=== PATIENT | male | born 1940 | race Caucasian/White ===

== ENCOUNTER 2019-11-08 09:52 | Outpatient (CLI) | payer MEDICARE, SELFPAY ==
[2019-11-08 11:19] LABS: Alanine Aminotransferase 22 U/L (4-50); Albumin Level 4.2 g/dL (3.5-5.1); Alkaline Phosphatase 100 U/L (38-126); Aspartate Amino Transferase 21 U/L (17-59); Bilirubin,Total 0.8 mg/dL (0.2-1.3); Blood Urea Nitrogen 15 mg/dL (9-20); Calcium 8.9 mg/dL (8.4-10.2); Carbon Dioxide 30 mmol/L (22-30); Chloride 99 mmol/L (98-107); Cholesterol 118 mg/dL (0-200); Estimated Glomerular Filt Rate > 60; Glucose 101 mg/dL (75-110); HDL Direct 38 mg/dL; Sodium 136 mmol/L (137-145); Triglycerides 141 mg/dL (<150); Uric Acid 3.8 mg/dL (3.5-8.5)
[2019-11-08 11:26] LABS: Hemoglobin A1C 6.1 % (<5.7)
[2019-11-08 11:30] LABS: LDL Cholesterol Direct 55 mg/dL
== END 2019-11-08 09:53 | disposition home or self-care (01) ==
PROVIDERS: PCP Internal Medicine; Visit Provider Internal Medicine
DX: M10.9 Gout, unspecified (principal); I10 Essential (primary) hypertension; E78.5 Hyperlipidemia, unspecified; E11.9 Type 2 diabetes mellitus without complications; E03.9 Hypothyroidism, unspecified; Z79.899 Other long term (current) drug therapy
CPT/HCPCS: 36415; 80053; 80061; 83036; 84443; 84550

== ENCOUNTER 2020-05-14 10:14 | Outpatient (CLI) | payer MEDICARE, SELFPAY ==
[2020-05-14 10:47] LABS: Alanine Aminotransferase 33 U/L (4-50); Albumin Level 4.2 g/dL (3.5-5.1); Alkaline Phosphatase 111 U/L (38-126); Anion Gap 5 mmol/L (8-16); Aspartate Amino Transferase 30 U/L (17-59); Bilirubin,Total 0.9 mg/dL (0.2-1.3); Blood Urea Nitrogen 21 mg/dL (9-20); Calcium 9.3 mg/dL (8.4-10.2); Carbon Dioxide 35 mmol/L (22-30); Chloride 96 mmol/L (98-107); Cholesterol 124 mg/dL (0-200); Estimated Glomerular Filt Rate > 60; Glucose 124 mg/dL (75-110); HDL Direct 41 mg/dL; Potassium 4.6 mmol/L (3.4-5.0); Sodium 136 mmol/L (137-145); Triglycerides 115 mg/dL (<150)
[2020-05-14 10:59] LABS: LDL Cholesterol Direct 61 mg/dL
== END 2020-05-14 10:15 | disposition home or self-care (01) ==
PROVIDERS: PCP Internal Medicine; Visit Provider Nurse Practitioner
DX: E78.5 Hyperlipidemia, unspecified (principal); E11.9 Type 2 diabetes mellitus without complications
CPT/HCPCS: 36415; 80053; 80061; 83036

== ENCOUNTER 2020-11-05 19:24 | Inpatient (IN) | payer MEDICARE, SELFPAY ==
[2020-11-05] VITALS (11 sets, daily range): BP systolic 113–172; BP diastolic 68–104; PULSE 89–109; RESP 15–30; TEMP 37.1–39.4; O2SAT 88–96
--- NOTE | ~2020-11-05 | CT_ITS ---
EXAMINATION: CTA chest PE protocol EXAM DATE: 11/05/2020 21:39 INDICATION: Shortness of breath, elevated d dimer. TECHNIQUE: Spiral CTA of the chest (pulmonary arteries) was performed with 100 cc Omnipaque 350 intr avenous contrast injection. Images were acquired during the pulmonary arterial phase. Coronal maxi mum intensity projection 3D-reconstructions were created by the technologist on dedicated workstation . Axial, coronal and sagittal reformatted images were reviewed. The dose-length product (DLP) for t his examination was 626.25 mGy-cm. The exposure was tailored according to patient size (auto mA exp osure control), and iterative reconstruction (ASIR) was used as additional dose reduction technique. There is no prior study for comparison. FINDINGS: There are no pulmonary emboli in the 1st through 3rd order (central and interlobar) pulmon alcon arteries. Some loss of attenuation in the basilar segmental pulmonary from respiratory motion, t hese regions not confidently evaluated. No Intraluminal filling defects identified. No thoracic aor tic dissection. There are some scattered ill-defined bilateral perihilar groundglass opacities consi stent with pneumonia. These are not well appreciated on the chest x-ray. There are no pleural or per icardial effusions. Tracheobronchial tree is patent. There is no mediastinal, hilar or axillary l ymphadenopathy. There is no pneumothorax. Heart normal in size. There is moderate coronary merlene rial calcification, arterial sclerosis. There is abdominal aortic endograft. There is thoracic spon dylosis without osteoblastic or osteolytic lesions identified. IMPRESSION: 1. No central or upper lobe pulmonary emboli. Basilar segmental vessels not confidently evaluated. 2. Some scattered ill-defined perihilar groundglass opacities, likely acute infectious process. Reviewed, dictated and finalized at location G. IMPRESSION: 1. No central or upper lobe pulmonary emboli. Basilar segmental vessels not co nfidently evaluated. 2. Some scattered ill-defined perihilar groundglass opacities, likely acute in fectious process.
--- NOTE | ~2020-11-05 | XR_ITS ---
EXAMINATION: XR chest 2V EXAM DATE: 11/05/2020 19:48 INDICATION: SOB and weakness, nonproductive cough x 2 days, Hx of COPD. TECHNIQUE: Frontal and lateral projections of the chest obtained and reviewed. Comparison is made to prior examination from 01/18/2018. FINDINGS: The lungs are clear. There are no pleural effusions. The cardiomediastinal silhouette is within normal limits. There is no pneumothorax suspected. The bones and soft tissues are unremarkab le. IMPRESSION: No acute cardiopulmonary findings. Reviewed, dictated and finalized at location A.
--- NOTE | 2020-11-05 19:32 | ECG_ITS ---
Measurements Intervals [place] Rate: 108 P: 70 FL: 175 QRS: 38 QRSD: 90 T: 92 QT: 289 QTc: 388 Interpretive Statements SINUS TACHYCARDIA NONSPECIFIC ST & T-WAVE ABNORMALITY- DIFFUSE LEADS BASELINE ARTIFACT- I, II, III ABNORMAL ECG Electronically Signed On 11-06-2020 6:12:51 CDT by Vicente Ledezma D.O.
[2020-11-05 20:06] LABS: Basophils Percent Auto 0.3 % (0.2-1.2); Eosinophils Absolute Auto 0.1 K/mm3 (0-0.3); Eosinophils Percent Auto 1.2 % (0-4.4); Hematocrit 46.3 % (42.0-52.0); Hemoglobin 15.4 g/dL (14.0-18.0); Immature Granulocyte Absolute 0.07 K/mm3 (0.00-0.031); Immature Granulocyte Percent A 0.6 % (0-0.5); Lymphocytes Absolute Auto 0.84 K/mm3 (0.9-3.2); Lymphocytes Percent Auto 7.4 % (18.3-44.2); Mean Corpuscular HGB Conc 33.3 g/dl (32-36); Mean Corpuscular Hemoglobin 30.9 pg (26-34); Mean Platelet Volume 9.8 fl (7.4-10.4); Monocytes Absolute Auto 0.9 K/mm3 (0.1-0.6); Neutrophils Absolute Auto 9.3 K/mm3 (1.3-6.7); Neutrophils Percent Auto 82.5 % (45.5-73.1); Platelet Count Result 126 k/mm3 (150-375); Red Blood Count 4.98 M/mm3 (4.6-6.20); Red Cell Distribution Width 13.2 % (11.5-14.5); White Blood Count 11.3 K/mm3 (4.5-10.0)
[2020-11-05 20:18] LABS: Anion Gap 8 mmol/L (8-16); Blood Urea Nitrogen 13 mg/dL (9-20); Calcium 8.7 mg/dL (8.4-10.2); Carbon Dioxide 25 mmol/L (22-30); Chloride 100 mmol/L (98-107); Estimated Glomerular Filt Rate > 60; Glucose 140 mg/dL (75-110); Potassium 3.8 mmol/L (3.4-5.0); Sodium 133 mmol/L (137-145)
--- NOTE | 2020-11-05 20:20 | ED.SOB ---
HPI - SOB/Dyspnea General Chief Complaint: Shortness of Breath/Dyspnea Stated Complaint: sob Time Seen by Provider: 11/05/20 19:47 Source: patient, EMS and RN notes reviewed Mode of arrival: EMS Limitations: no limitations History of Present Illness HPI Narrative: This is a 80 year old male with history of CHF, COPD,HTN, CAD who presents for evaluation shortness of breath. Patient states he has had shortness of breath for 1 day. EMS found patient to be hypoxic at 88% on room and he was placed on 3 L NC. He also reports productive cough and wheezing. He has been using his nebulizer at home but he is unsure if he has had improvement . He denies chest pain, nasuea, vomiting or diarrhea. He was found to have a fever in ER of 103F. He denies sick contacts. He received his COVID vaccine in August. Related Data Allergies Allergy/AdvReac Type Severity Reaction Status Date / Time No Known Allergies Allergy Mild Verified 11/03/20 13:54 Review of Systems Review of Systems: All systems reviewed & are unremarkable except as noted in HPI and below Constitutional: Constitutional: Reports chills, Reports fever(s) and Reports weakness ENT: Denies sore throat Cardiovascular: Cardiovascular: Denies chest pain Respiratory: Respiratory: Reports cough and Reports dyspnea Gastrointestinal: Gastrointestinal: Denies abdominal pain, Denies diarrhea, Denies nausea and Denies vomiting PMFSH Past Medical History Medical History (Updated 11/06/20 @ 07:10 by Yael Potter MD) Abdominal aortic aneurysm, without rupture Chronic obstructive pulmonary disease, unspecified COVID-19 vaccine series completed (~08/2020) Diabetes mellitus with peripheral vascular disease Essential (primary) hypertension Gout History of BPH Hyperlipidemia Hypothyroidism Obstructive sleep apnea Raynauds syndrome Surgical History Surgical History (Updated 11/06/20 @ 01:29 by Makeda Bush DO) History of aortic aneurysm repair History of knee replacement (2006) History of left knee replacement History of total right knee replacement (~2005) Status post open reduction with internal fixation of fracture (~1996) right tibial shaft Family History Family History (Updated 11/06/20 @ 01:37 by Makeda Bush DO) Sibling Heart disease his brother has heart disease but is otherwise healthy Patient's sister is in good health Throat cancer brother Father , at age 64 Cerebrovascular accident, Onset Age: 62 Mother , at age 94 Diabetes mellitus, Onset Age: 95 Social History Social History (Updated 11/06/20 @ 01:36 by Makeda Bush DO) Social History: He lives with his of 22 years. 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 Smoking packs per day: 2 Smoking cigarettes per day: 40.0 Years smoked: 41 Smoking pack-years: 82.00 Smoking status: Former smoker Tobacco type: cigarettes Second hand tobacco smoke exposure: Yes Smoking end date: 09/21/94 Alcohol intake: former Drinks per week: 14 Substance use: current Substance use type: marijuana Other substance usage details: [email or web address] Gender identity (if verbalized by the patient): Male Sexual Orientation (if Verbalized by the Patient): Straight or Heterosexual Spiritual care concerns: No Exam Const: General: alert and ill appearing Orientation/consciousness: patient oriented x3 Resp: Effort & Inspection: tachypneic Auscultation: rales and no wheezes Cardio: Rate: tachycardic Rhythm: regular rhythm Heart sounds: no murmurs GI: GI Palp: Yes Soft to palpation, No Tenderness to palpation present (GI) and No Guarding due to palpation present (GI) Auscultation: normal bowel sounds Skin: General skin exam: normal color Rashes: no rashes Neuro: General: patient oriented x3, moves all extremities and CN's II-XI intact bilaterally Psyc
[2020-11-05] MEDS: ALBUTEROL SULFATE NEB 2.5 MG/0.5 ML INH 10 MG INHALATION (20:23)
[2020-11-05] MEDS: methylPREDNISolone SOD SUCC 125 MG VIAL IV PUSH (20:23)
[2020-11-05] MEDS: IPRATROPIUM BR 0.02% INH SOLN 0.5 MG/2.5 ML VIAL 1 MG INHALATION (20:23)
[2020-11-05 20:39] LABS: Alveolar/Arterial O2 Gradient 82.6 mmHg; Base Excess ABG 0.9 mEq/l (+/-2.0); Carboxyhemoglobin 0.7 % THb (0-2.0); Device NASAL CANNULA; Fractional Inspired Oxygen 32 %; HCO3 ABG 26.5 mEq/l (22.0-26.0); Methemoglobin ABG 0.6 %THb (0-1.5); Modified Allen's Test Pass; Oxygen Content ABG 21.6 %vol (16.0-22.0); Oxygen Saturation ABG 96.9 % (95.0-100.0); Oxyhemoglobin 95.4 % THb (90.0-100.0); PCO2 ABG 45.4 mmHg (35.0-45.0); PO2 ABG 92.4 mmHg (80.0-100.0); PO2 FiO2 Ratio Arterial Blood 2.89 %; Reduced Hemoglobin 3.3 %THb (0-5.0); Site Drawn RIGHT RADIAL; Total Hemoglobin 16.1 g/dL (12.0-18.0); pH ABG 7.384 (7.350-7.450)
[2020-11-05 20:47] LABS: Add Urine Microscopic? YES; Appearance Urine Clear (Clear); Bacteria Urine Trace /hpf; Bilirubin Urine Negative (Negative); Blood Urine Negative (Negative); Color Urine Yellow (Yellow); Glucose Urine UA Negative (Negative); Ketones Urine Negative (Negative); Leukocyte Esterase Ur Negative LEU/UL (Negative); Nitrate Urine Negative (Negative); Protein Urine 1+ mg/dL (Negative); RBC Urine 0-2 /hpf (0-2); Specific Grav Ur 1.018 (1.001-1.035); Squamous Epithelial Cell Urine Rare /hpf (Few); WBC Urine 0-3 /hpf
[2020-11-05 20:51] LABS: Prothrombin Time 13.1 Seconds (11.1-14.7)
[2020-11-05 20:51] LABS: Lactic Acid Reflex 1.4 mmol/L (0.7-2.1)
[2020-11-05 20:52] LABS: Partial Thromboplastin Time 29.4 SECONDS (22.3-36.8)
[2020-11-05 20:53] LABS: Alanine Aminotransferase 51 U/L (4-50); Albumin Level 4.3 g/dL (3.5-5.1); Alkaline Phosphatase 105 U/L (38-126); Aspartate Amino Transferase 41 U/L (17-59); CRP 2.7 mg/dL (<1.0)
[2020-11-05 20:54] LABS: D Dimer 1.44 ug/mL (<0.48)
[2020-11-05 21:02] LABS: Troponin I 0.014 ng/mL (0.000-0.034)
[2020-11-06] VITALS (15 sets, daily range): BP systolic 119–135; BP diastolic 65–89; PULSE 61–87; RESP 16–20; TEMP 36.1–36.8; O2SAT 90–100; BMI 35.9
--- NOTE | 2020-11-06 01:19 | PM.IMHP ---
H&P: HPI History of Present Illness Date/Time: 11/05/20 22:40 Chief Complaint: Weakness and shortness of breath Narrative: 80-year-old male with past medical history of COPD,, hypertension, diabetes and obstructive sleep apnea who presented to the ER from home via EMS with weakness and shortness of breath starting yesterday. The patient reports that he has had new onset of cough that is nonproductive. He feels like he has a wet rattle in his chest. He does not usually use oxygen at home but on EMS arrival to his residence he is satting 80% on room air. He is placed on 3 L nasal cannula with improvement in oxygen saturations up to 96%. The patient is usually ambulatory and independent in activities of daily living but had required assistance getting around the house today. He has been having chills and feeling feverish. He has noticed that he has been more wheezy. He has been using his DuoNebs every 6 hours with minimal relief in symptoms. He had not taken his temperature at home. he received the [employer] COVID vaccine at least a couple of months ago. he denies any chest pain. He has not had a nausea, vomiting, changes in sense of taste, changes in sense of smell, increased nasal congestion or rhinorrhea. He has been compliant with his home CPAP. He denies any lower extremity swelling or leg pain. His cough and shortness of breath is worse with lying down and with activity. He generally feels weak. He routinely gets up 4 times a night to urinate. He frequently feels as if he can't empty his bladder all the way. He has difficulty starting and stopping his urinary stream. He is not on any medications for BPH. He recently started taking marijuana edibles twice a day which has resolved his chronic dysuria. Marijuana edibles also help him with his arthritic pain. Review of Systems Review of Systems: Narrative: 12 systems were reviewed with pertinent positives and negatives per HPI. Except as documented in the HPI, all other systems were reviewed and are negative. [facility] Past Medical History Medical History (Updated 11/06/20 @ 02:31 by Makeda Bush DO) Abdominal aortic aneurysm, without rupture Chronic obstructive pulmonary disease, unspecified COVID-19 vaccine series completed (~08/2020) Diabetes mellitus with peripheral vascular disease Essential (primary) hypertension Gout History of BPH Hyperlipidemia Hypothyroidism Obstructive sleep apnea Raynauds syndrome Surgical History Surgical History (Updated 11/06/20 @ 01:29 by Makeda Bush DO) History of aortic aneurysm repair History of knee replacement (2006) History of left knee replacement History of total right knee replacement (~2005) Status post open reduction with internal fixation of fracture (~1996) right tibial shaft Family History Family History (Updated 11/06/20 @ 01:37 by Makeda Bush DO) Sibling Heart disease his brother has heart disease but is otherwise healthy Patient's sister is in good health Throat cancer brother Father , at age 64 Cerebrovascular accident, Onset Age: 62 Mother , at age 94 Diabetes mellitus, Onset Age: 95 Social History Social History (Updated 11/06/20 @ 01:36 by Makeda Bush DO) Social History: He lives with his of 22 years. 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 Smoking packs per day: 2 Smoking cigarettes per day: 40.0 Years smoked: 41 Smoking pack-years: 82.00 Smoking status: Former smoker Tobacco type: cigarettes Second hand tobacco smoke exposure: Yes Smoking end date: 09/21/94 Alcohol intake: former Drinks per week: 14 Substance use: current Substance use type: marijuana Other substance usage details: matthew Gender identity (if verbalized by the patient): Male Sexual Orientation (if Verbalized by the Patient): Straight or Heterosexua
[2020-11-06 06:12] LABS: Hematocrit 45.9 % (42.0-52.0); Hemoglobin 15.4 g/dL (14.0-18.0); Mean Corpuscular HGB Conc 33.6 g/dl (32-36); Mean Corpuscular Hemoglobin 31.2 pg (26-34); Mean Corpuscular Volume 93.1 fl (80-100); Mean Platelet Volume 9.9 fl (7.4-10.4); Platelet Count Result 119 k/mm3 (150-375); Red Blood Count 4.93 M/mm3 (4.6-6.20); White Blood Count 15.4 K/mm3 (4.5-10.0)
[2020-11-06 06:34] LABS: Alanine Aminotransferase 46 U/L (4-50); Alkaline Phosphatase 83 U/L (38-126); Anion Gap 8 mmol/L (8-16); Aspartate Amino Transferase 40 U/L (17-59); Bilirubin,Total 0.5 mg/dL (0.2-1.3); Blood Urea Nitrogen 14 mg/dL (9-20); Calcium 9.1 mg/dL (8.4-10.2); Carbon Dioxide 28 mmol/L (22-30); Chloride 100 mmol/L (98-107); Estimated CRCL calculation 61 ml/min; Estimated Glomerular Filt Rate > 60; Glucose 319 mg/dL (75-110); Potassium 4.5 mmol/L (3.4-5.0); Sodium 136 mmol/L (137-145)
[2020-11-06 06:44] LABS: Band Neutrophils Percent 8 % (0-6); Monocytes Absolute Manual 0.15 K/mm3 (0.1-0.90); Monocytes Percent Manual 1 % (3-9); Neutrophils Absolute Manual 14.93 K/mm3 (1.3-6.7); Neutrophils Percent Manual 89 % (46-73); Total Cells Counted 100
[2020-11-06 06:46] LABS: Platelet Estimate Adequate (Adequate)
--- NOTE | 2020-11-06 06:57 | ADMGEN ---
This patient, Lamonte Adrian, was admitted to [facility] Surg Room 326-01. Patient/family oriented to hospital policies and general routines including ID bracelet, bed and alarms, visiting hours, pain management, procedures, bathroom and other care routines, personal items, smoking policy, room service/diet, and visiting hours. Information on how to activate the Rapid Response Team has been discussed. Patient/Family are encouraged to report perceived risks to care and to ask questions if they do not understand what they are told or what they should do. Discussed hospital policy, the importance of calling for assistance r/t limited mobility, general call light use, medications, and health monitoring. Called his (Mary) about his medications. She said she had a medication list at home and verified his meds over the phone. Patient was cooperative and well oriented to the hospital and time of day.
[2020-11-06] MEDS: INSULIN ASPART (*BKC) 100 UNITS/ML SUB-Q ×3 (08:23→17:44)
[2020-11-06] MEDS: amLODIPine BESYLATE 2.5 MG TABLET PO (08:24)
[2020-11-06] MEDS: ATORVASTATIN 40 MG TABLET 80 MG PO (08:24)
[2020-11-06] MEDS: CLOPIDOGREL BISULFATE 75 MG TABLET PO (08:24)
[2020-11-06] MEDS: lisinopriL 20 MG TABLET PO (08:24)
[2020-11-06] MEDS: allopurinoL 300 MG TABLET PO (08:24)
[2020-11-06] MEDS: metFORMIN HCL 500 MG TABLET PO (08:25)
[2020-11-06] MEDS: carvediloL 12.5 MG TABLET PO ×2 (08:27→21:25)
[2020-11-06] MEDS: ENOXAPARIN 40 MG/0.4 ML SYRINGE SUB-Q (08:29)
[2020-11-06 08:53] LABS: Glucose Point of Care 303 mg/dl (65-105)
[2020-11-06] MEDS: BUDESONIDE RESPULE NEB 0.5 MG/2 ML AMP INHALATION ×2 (09:04→20:29)
[2020-11-06] MEDS: ALBUTEROL SULFATE (*SP) INHALER 4 PUFF INHALATION ×3 (09:05→20:29)
[2020-11-06 11:48] LABS: Glucose Point of Care 209 mg/dl (65-105)
[2020-11-06] MEDS: TAMSULOSIN HCL 0.4 MG CAPSULE PO (12:48)
--- NOTE | 2020-11-06 14:39 | PM.IMPN ---
Progress Note: A&P Assessment and Plan (1) Community acquired pneumonia: Qualifiers: Laterality: unspecified laterality Qualified Code(s): J18.9 - Pneumonia, unspecified organism Code(s): J18.9 - Pneumonia, unspecified organism Status: Acute Assessment and Plan: Patient presents with weakness and shortness of breath x1 day. CTA chest shows scattered perihilar ground-glass opacities concerning for pneumonia. COVID PCR pending. COVID vaccinated with J&J few months back. Continue empiric antibiotic therapy with IV azithromycin and Rocephin while awaiting COVID PCR. Supportive care with Tylenol for fevers, albuterol PRN. Some wheezing on exam, added prednisone. (2) Sepsis: Qualifiers: Acute respiratory failure type: with hypoxia Sepsis acute organ dysfunction status: with acute organ dysfunction Sepsis type: sepsis due to unspecified organism Severe sepsis acute organ dysfunction type: acute respiratory failure Severe sepsis shock status: without septic shock Qualified Code(s): A41.9 - Sepsis, unspecified organism; R65.20 - Severe sepsis without septic shock; J96.01 - Acute respiratory failure with hypoxia Code(s): A41.9 - Sepsis, unspecified organism Status: Acute Assessment and Plan: Evident on arrival with fever, tachycardia, leukocytosis. Suspected source is respiratory. COVID PCR pending. Blood cultures pending. Legionella and pneumococcal urine antigens pending. Continue IV abx as above. Monitor vital signs and urine output. (3) Acute respiratory failure with hypoxia: Code(s): J96.01 - Acute respiratory failure with hypoxia Status: Acute Assessment and Plan: Suspect related to pneumonia with underlying history of COPD. Wean supplemental oxygen as tolerated to keep O2 saturations > 90%. (4) BPH with obstruction/lower urinary tract symptoms: Code(s): N40.1 - Benign prostatic hyperplasia with lower urinary tract symptoms; N13.8 - Other obstructive and reflux uropathy Status: Acute Assessment and Plan: Patient reports incomplete bladder emptying, nocturia. He was started on Flomax here. Monitor. (5) Obstructive sleep apnea (adult) (pediatric): Code(s): G47.33 - Obstructive sleep apnea (adult) (pediatric) Status: Acute Assessment and Plan: CPAP. (6) Diabetes mellitus: Qualifiers: Diabetes mellitus complication status: without complication Diabetes mellitus custodial insulin use: without tank terminal gauger use Diabetes mellitus type: type 2 Qualified Code(s): E11.9 - Type 2 diabetes mellitus without complications Code(s): E11.9 - Type 2 diabetes mellitus without complications Status: Chronic Assessment and Plan: A1c 6.0 in May. Recheck in AM. His home metformin is held. Continue to monitor with accu-cheks and adjust treatment as needed, cover with SSI. (7) Chronic obstructive pulmonary disease, unspecified: Qualifiers: COPD type: unspecified COPD Qualified Code(s): J44.9 - Chronic obstructive pulmonary disease, unspecified Code(s): J44.9 - Chronic obstructive pulmonary disease, unspecified Status: Acute Assessment and Plan: With some minor wheezing today, add oral prednisone. Continue home pulmicort, albuterol, Spiriva. (8) Essential (primary) hypertension: Code(s): I10 - Essential (primary) hypertension Status: Chronic Assessment and Plan: Stable maintained on his home lisinopril, amlodipine. Subjective Date/time seen: 11/06/20 1100 Interval history: Mr. Sebastian
[2020-11-06 17:12] LABS: Glucose Point of Care 247 mg/dl (65-105)
[2020-11-06 20:42] LABS: Glucose Point of Care 232 mg/dl (65-105)
[2020-11-07] VITALS (19 sets, daily range): BP systolic 127–154; BP diastolic 73–86; PULSE 60–84; RESP 16–25; TEMP 36.1–36.5; O2SAT 92–100
[2020-11-07 07:10] LABS: Basophils Percent Auto 0.2 % (0.2-1.2); Hematocrit 44.2 % (42.0-52.0); Hemoglobin 14.7 g/dL (14.0-18.0); Immature Granulocyte Absolute 0.17 K/mm3 (0.00-0.031); Immature Granulocyte Percent A 1.1 % (0-0.5); Immature Platelet Fraction Pct 3.3 % (0.9-11.2); Lymphocytes Absolute Auto 1.09 K/mm3 (0.9-3.2); Lymphocytes Percent Auto 6.9 % (18.3-44.2); Mean Corpuscular HGB Conc 33.3 g/dl (32-36); Mean Corpuscular Hemoglobin 31.1 pg (26-34); Mean Corpuscular Volume 93.6 fl (80-100); Mean Platelet Volume 9.8 fl (7.4-10.4); Monocytes Percent Auto 6.3 % (2.6-8.5); Neutrophils Absolute Auto 13.5 K/mm3 (1.3-6.7); Neutrophils Percent Auto 85.5 % (45.5-73.1); Platelet Count Result 132 k/mm3 (150-375); Red Blood Count 4.72 M/mm3 (4.6-6.20); Red Cell Distribution Width 13.1 % (11.5-14.5); White Blood Count 15.8 K/mm3 (4.5-10.0)
[2020-11-07 07:41] LABS: Anion Gap 4 mmol/L (8-16); Blood Urea Nitrogen 19 mg/dL (9-20); Carbon Dioxide 34 mmol/L (22-30); Chloride 100 mmol/L (98-107); Estimated CRCL calculation 75 ml/min; Estimated Glomerular Filt Rate > 60; Glucose 159 mg/dL (75-110); Magnesium 2.1 mg/dL (1.6-2.3); Potassium 4.6 mmol/L (3.4-5.0); Sodium 138 mmol/L (137-145)
[2020-11-07 07:54] LABS: Hemoglobin A1C 6.3 % (<5.7)
[2020-11-07] MEDS: IPRATROPIUM BR 0.02% INH SOLN 0.5 MG/2.5 ML VIAL INHALATION ×3 (08:02→20:46)
[2020-11-07] MEDS: BUDESONIDE RESPULE NEB 0.5 MG/2 ML AMP INHALATION ×2 (08:02→20:46)
[2020-11-07] MEDS: ALBUTEROL SULFATE NEB 2.5 MG/0.5 ML INH INHALATION ×3 (08:02→20:46)
[2020-11-07 08:19] LABS: Glucose Point of Care 133 mg/dl (65-105)
[2020-11-07] MEDS: predniSONE 20 MG TABLET 60 MG PO (08:50)
[2020-11-07] MEDS: ENOXAPARIN 40 MG/0.4 ML SYRINGE SUB-Q (08:50)
[2020-11-07] MEDS: ATORVASTATIN 40 MG TABLET 80 MG PO (08:51)
[2020-11-07] MEDS: carvediloL 12.5 MG TABLET PO ×2 (08:51→20:26)
[2020-11-07] MEDS: lisinopriL 20 MG TABLET PO (08:51)
[2020-11-07] MEDS: TAMSULOSIN HCL 0.4 MG CAPSULE PO (08:51)
[2020-11-07] MEDS: amLODIPine BESYLATE 2.5 MG TABLET PO (08:51)
[2020-11-07] MEDS: allopurinoL 300 MG TABLET PO (08:51)
[2020-11-07] MEDS: CLOPIDOGREL BISULFATE 75 MG TABLET PO (08:51)
[2020-11-07] MEDS: metFORMIN HCL 500 MG TABLET PO (08:51)
[2020-11-07 08:54] LABS: CRP 11.9 mg/dL (<1.0)
[2020-11-07 12:40] LABS: Glucose Point of Care 187 mg/dl (65-105)
--- NOTE | 2020-11-07 14:01 | PM.IMPN ---
Progress Note: A&P Assessment and Plan (1) Community acquired pneumonia: Qualifiers: Laterality: unspecified laterality Qualified Code(s): J18.9 - Pneumonia, unspecified organism Code(s): J18.9 - Pneumonia, unspecified organism Status: Acute Assessment and Plan: Patient presents with weakness and shortness of breath x1 day. CTA chest shows scattered perihilar ground-glass opacities concerning for pneumonia. COVID PCR pending. COVID vaccinated with J&J few months back. Family member tested positive this week. Continue empiric antibiotic therapy with IV azithromycin and Rocephin while awaiting COVID PCR results. Supportive care with Tylenol for fevers, albuterol PRN. Some wheezing on exam, added prednisone. (2) Sepsis: Qualifiers: Acute respiratory failure type: with hypoxia Sepsis acute organ dysfunction status: with acute organ dysfunction Sepsis type: sepsis due to unspecified organism Severe sepsis acute organ dysfunction type: acute respiratory failure Severe sepsis shock status: without septic shock Qualified Code(s): A41.9 - Sepsis, unspecified organism; R65.20 - Severe sepsis without septic shock; J96.01 - Acute respiratory failure with hypoxia Code(s): A41.9 - Sepsis, unspecified organism Status: Acute Assessment and Plan: Evident on arrival with fever, tachycardia, leukocytosis. Suspected source is respiratory. COVID PCR pending. Blood cultures pending. Legionella and pneumococcal urine antigens pending. Continue IV abx as above. Monitor vital signs and urine output. (3) Acute respiratory failure with hypoxia: Code(s): J96.01 - Acute respiratory failure with hypoxia Status: Acute Assessment and Plan: Suspect related to pneumonia with underlying history of COPD. Wean supplemental oxygen as tolerated to keep O2 saturations > 90%. (4) BPH with obstruction/lower urinary tract symptoms: Code(s): N40.1 - Benign prostatic hyperplasia with lower urinary tract symptoms; N13.8 - Other obstructive and reflux uropathy Status: Acute Assessment and Plan: Patient reports incomplete bladder emptying, nocturia. He was started on Flomax here. Monitor. (5) Obstructive sleep apnea (adult) (pediatric): Code(s): G47.33 - Obstructive sleep apnea (adult) (pediatric) Status: Acute Assessment and Plan: CPAP. (6) Diabetes mellitus: Qualifiers: Diabetes mellitus complication status: without complication Diabetes mellitus senior living insulin use: without exterminator use Diabetes mellitus type: type 2 Qualified Code(s): E11.9 - Type 2 diabetes mellitus without complications Code(s): E11.9 - Type 2 diabetes mellitus without complications Status: Chronic Assessment and Plan: A1c 6.3%. Recheck in AM. Continue home metformin. Continue to monitor with accu-cheks and adjust treatment as needed, cover with SSI. (7) Chronic obstructive pulmonary disease, unspecified: Qualifiers: COPD type: unspecified COPD Qualified Code(s): J44.9 - Chronic obstructive pulmonary disease, unspecified Code(s): J44.9 - Chronic obstructive pulmonary disease, unspecified Status: Acute Assessment and Plan: With some minor wheezing, continue oral prednisone. Continue home pulmicort, albuterol, Spiriva. (8) Essential (primary) hypertension: Code(s): I10 - Essential (primary) hypertension Status: Chronic Assessment and Plan: Stable maintained on his home lisinopril, amlodipine. Subjective Date/time seen: 11/07/20 [facility]
[2020-11-07 16:44] LABS: SARS-CoV-2 RNA PCR Positive
[2020-11-07 16:50] LABS: Glucose Point of Care 221 mg/dl (65-105)
[2020-11-07] MEDS: INSULIN ASPART (*BKC) 100 UNITS/ML SUB-Q (17:33)
[2020-11-07] MEDS: DEXAMETHASONE SOD PHOS INJ 4 MG/ML VIAL 6 MG IV PUSH (18:48)
[2020-11-07 19:48] LABS: Alanine Aminotransferase 41 U/L (4-50)
[2020-11-07 19:54] LABS: INR 0.9
[2020-11-07] MEDS: REMDESIVIR 200 MG/NS 250 ML 200 MG/250 ML BAG 250 MG IVPB (20:25)
[2020-11-07 20:43] LABS: Glucose Point of Care 267 mg/dl (65-105)
[2020-11-08] VITALS (20 sets, daily range): BP systolic 114–149; BP diastolic 45–74; PULSE 56–87; RESP 14–22; TEMP 36.5–36.7; O2SAT 90–98
[2020-11-08] MEDS: IPRATROPIUM BR 0.02% INH SOLN 0.5 MG/2.5 ML VIAL INHALATION ×4 (02:25→21:25)
[2020-11-08] MEDS: ALBUTEROL SULFATE NEB 2.5 MG/0.5 ML INH INHALATION ×4 (02:25→21:25)
[2020-11-08 06:09] LABS: Basophils Percent Auto 0.1 % (0.2-1.2); Hematocrit 42.9 % (42.0-52.0); Hemoglobin 14.1 g/dL (14.0-18.0); Immature Granulocyte Percent A 0.7 % (0-0.5); Lymphocytes Absolute Auto 0.74 K/mm3 (0.9-3.2); Lymphocytes Percent Auto 5.5 % (18.3-44.2); Mean Corpuscular HGB Conc 32.9 g/dl (32-36); Mean Corpuscular Hemoglobin 30.9 pg (26-34); Mean Corpuscular Volume 93.9 fl (80-100); Mean Platelet Volume 10.1 fl (7.4-10.4); Monocytes Absolute Auto 0.7 K/mm3 (0.1-0.6); Monocytes Percent Auto 5.3 % (2.6-8.5); Neutrophils Absolute Auto 11.9 K/mm3 (1.3-6.7); Neutrophils Percent Auto 88.4 % (45.5-73.1); Platelet Count Result 130 k/mm3 (150-375); Red Blood Count 4.57 M/mm3 (4.6-6.20); Red Cell Distribution Width 13.1 % (11.5-14.5); White Blood Count 13.5 K/mm3 (4.5-10.0)
[2020-11-08 06:20] LABS: INR 0.9; Prothrombin Time 12.4 Seconds (11.1-14.7)
[2020-11-08 06:22] LABS: Alanine Aminotransferase 36 U/L (4-50); Albumin Level 3.6 g/dL (3.5-5.1); Alkaline Phosphatase 72 U/L (38-126); Anion Gap 6 mmol/L (8-16); Aspartate Amino Transferase 33 U/L (17-59); Bilirubin,Total 0.4 mg/dL (0.2-1.3); Blood Urea Nitrogen 22 mg/dL (9-20); CRP 6.2 mg/dL (<1.0); Calcium 8.9 mg/dL (8.4-10.2); Carbon Dioxide 33 mmol/L (22-30); Chloride 100 mmol/L (98-107); Estimated CRCL calculation 75 ml/min; Estimated Glomerular Filt Rate > 60; Glucose 203 mg/dL (75-110); Sodium 139 mmol/L (137-145)
[2020-11-08] MEDS: BUDESONIDE RESPULE NEB 0.5 MG/2 ML AMP INHALATION ×2 (08:06→21:25)
[2020-11-08 08:33] LABS: Glucose Point of Care 168 mg/dl (65-105)
[2020-11-08] MEDS: amLODIPine BESYLATE 2.5 MG TABLET PO (09:51)
[2020-11-08] MEDS: ENOXAPARIN 40 MG/0.4 ML SYRINGE SUB-Q (09:51)
[2020-11-08] MEDS: ATORVASTATIN 40 MG TABLET 80 MG PO (09:51)
[2020-11-08] MEDS: carvediloL 12.5 MG TABLET PO ×2 (09:51→20:29)
[2020-11-08] MEDS: lisinopriL 20 MG TABLET PO (09:51)
[2020-11-08] MEDS: allopurinoL 300 MG TABLET PO (09:51)
[2020-11-08] MEDS: TAMSULOSIN HCL 0.4 MG CAPSULE PO (09:51)
[2020-11-08] MEDS: metFORMIN HCL 500 MG TABLET PO (09:51)
[2020-11-08] MEDS: CLOPIDOGREL BISULFATE 75 MG TABLET PO (09:51)
[2020-11-08] MEDS: DEXAMETHASONE SOD PHOS INJ 4 MG/ML VIAL 6 MG IV PUSH (09:52)
--- NOTE | 2020-11-08 11:16 | P.PNIM_ITS ---
Progress Note: A&P Assessment and Plan (1) Pneumonia due to COVID-19 virus: Code(s): U07.1 - COVID-19; J12.82 - Pneumonia due to coronavirus disease 2019 Status: Acute Assessment and Plan: * Patient with COPD presents with weakness and shortness of breath x 1 day, sx started 11/05. * COVID positive by PCR 11/05. CTA chest shows scattered perihilar groundglass opacities without evidence of central PE, limited sensitivity in segmental arteries due to motion. * COVID vaccinated with J&J few months back. Family member tested positive this week. * Empiric IV azithromycin and Rocephin discontinued given viral nature. * Started remdesivir and dexamethasone 11/07 (day 2). * Supportive care with Tylenol for fevers, albuterol PRN. (2) Sepsis: Qualifiers: Sepsis type: sepsis due to unspecified organism Sepsis acute organ dysfunction status: with acute organ dysfunction Severe sepsis acute organ dysfunction type: acute respiratory failure Acute respiratory failure type: with hypoxia Severe sepsis shock status: without septic shock Qualified Co de(s): A41.9 - Sepsis, unspecified organism; R65.20 - Severe sepsis without septic shock; J96.01 - Acute respiratory failure with hypoxia Code(s): A41.9 - Sepsis, unspecified organism Status: Acute Assessment and Plan: * Evident on arrival with fever, tachycardia, leukocytosis. Suspected source is respiratory, see above. * Blood cultures pending. Legionella and pneumococcal urine antigens pending. Sputum culture ordered if he can produce sample. * Monitor vital signs and urine output. Leukocytosis trending down, less common with COVID but no other evidence of acute infection at this time, will monitor. (3) Acute respiratory failure with hypoxia: Code(s): J96.01 - Acute respiratory failure with hypoxia Status: Acute Assessment and Plan: * Suspect related to pneumonia with underlying history of COPD. * Wean supplemental oxygen as tolerated to keep O2 saturations > 90%. (4) BPH with obstruction/lower urinary tract symptoms: Code(s): N40.1 - Benign prostatic hyperplasia with lower urinary tract symptoms; N13.8 - Other obstructive and reflux uropathy Status: Acute Assessment and Plan: * Patient reports incomplete bladder emptying, nocturia. He was started on Flomax here. Monitor. (5) Obstructive sleep apnea (adult) (pediatric): Code(s): G47.33 - Obstructive sleep apnea (adult) (pediatric) Status: Chronic Assessment and Plan: * CPAP. (6) Diabetes mellitus: Qualifiers: Diabetes mellitus type: type 2 Diabetes mellitus retirement insulin use: without retirement use Diabetes mellitus complication status: without complication Qualified Code(s): E11.9 - Type 2 diabetes mellitus without complications Code(s): E11.9 - Type 2 diabetes mellitus without complications Status: Chronic Assessment and Plan: * A1c 6.3%. Continue home metformin. Continue to monitor with accu-cheks and adjust treatment as needed, cover with SSI. (7) Chronic obstructive pulmonary disease, unspecified: Qualifiers: COPD type: unspecified COPD Qualified Code(s): J44.9 - Chronic obstru ctive pulmonary disease, unspecified Code(s): J44.9 - Chronic obstructive pulmonary disease, unspecified Status: Chronic
--- NOTE | 2020-11-08 11:16 | PM.IMPN ---
Progress Note: A&P Assessment and Plan (1) Pneumonia due to COVID-19 virus: Code(s): U07.1 - COVID-19; J12.82 - Pneumonia due to coronavirus disease 2019 Status: Acute Assessment and Plan: Patient with COPD presents with weakness and shortness of breath x 1 day, sx started 11/05. COVID positive by PCR 11/05. CTA chest shows scattered perihilar groundglass opacities without evidence of central PE, limited sensitivity in segmental arteries due to motion. COVID vaccinated with J&J few months back. Family member tested positive this week. Empiric IV azithromycin and Rocephin discontinued given viral nature. Started remdesivir and dexamethasone 11/07 (day 2). Supportive care with Tylenol for fevers, albuterol PRN. (2) Sepsis: Qualifiers: Sepsis type: sepsis due to unspecified organism Sepsis acute organ dysfunction status: with acute organ dysfunction Severe sepsis acute organ dysfunction type: acute respiratory failure Acute respiratory failure type: with hypoxia Severe sepsis shock status: without septic shock Qualified Code(s): A41.9 - Sepsis, unspecified organism; R65.20 - Severe sepsis without septic shock; J96.01 - Acute respiratory failure with hypoxia Code(s): A41.9 - Sepsis, unspecified organism Status: Acute Assessment and Plan: Evident on arrival with fever, tachycardia, leukocytosis. Suspected source is respiratory, see above. Blood cultures pending. Legionella and pneumococcal urine antigens pending. Sputum culture ordered if he can produce sample. Monitor vital signs and urine output. Leukocytosis trending down, less common with COVID but no other evidence of acute infection at this time, will monitor. (3) Acute respiratory failure with hypoxia: Code(s): J96.01 - Acute respiratory failure with hypoxia Status: Acute Assessment and Plan: Suspect related to pneumonia with underlying history of COPD. Wean supplemental oxygen as tolerated to keep O2 saturations > 90%. (4) BPH with obstruction/lower urinary tract symptoms: Code(s): N40.1 - Benign prostatic hyperplasia with lower urinary tract symptoms; N13.8 - Other obstructive and reflux uropathy Status: Acute Assessment and Plan: Patient reports incomplete bladder emptying, nocturia. He was started on Flomax here. Monitor. (5) Obstructive sleep apnea (adult) (pediatric): Code(s): G47.33 - Obstructive sleep apnea (adult) (pediatric) Status: Chronic Assessment and Plan: CPAP. (6) Diabetes mellitus: Qualifiers: Diabetes mellitus type: type 2 Diabetes mellitus half-way insulin use: without half-way use Diabetes mellitus complication status: without complication Qualified Code(s): E11.9 - Type 2 diabetes mellitus without complications Code(s): E11.9 - Type 2 diabetes mellitus without complications Status: Chronic Assessment and Plan: A1c 6.3%. Continue home metformin. Continue to monitor with accu-cheks and adjust treatment as needed, cover with SSI. (7) Chronic obstructive pulmonary disease, unspecified: Qualifiers: COPD type: unspecified COPD Qualified Code(s): J44.9 - Chronic obstructive pulmonary disease, unspecified Code(s): J44.9 - Chronic obstructive pulmonary disease, unspecified Status: Chronic Assessment and Plan: Continue home pulmicort, albuterol, Spiriva if we can use the nebulizers with the filters. Will talk with RT. (8) Essential (primary) hypertension: Code(s): I10 - Essential (primary) hypertension Status: Chronic Assessment and Plan: Stable maintained on his h
[2020-11-08 12:54] LABS: Glucose Point of Care 212 mg/dl (65-105)
[2020-11-08] MEDS: INSULIN ASPART (*BKC) 100 UNITS/ML SUB-Q ×2 (12:55→17:23)
[2020-11-08 17:21] LABS: Glucose Point of Care 258 mg/dl (65-105)
[2020-11-08] MEDS: REMDESIVIR 100 MG/NS 250 ML 100 MG/250 ML BAG 250 MG IVPB (20:29)
[2020-11-08 22:59] LABS: Pneumococcal Antigen Urine Not Detected (Not Detected)
[2020-11-09] VITALS (16 sets, daily range): BP systolic 134–166; BP diastolic 60–73; PULSE 53–92; RESP 15–20; TEMP 36.1–36.4; O2SAT 91–99
[2020-11-09] MEDS: ALBUTEROL SULFATE NEB 2.5 MG/0.5 ML INH INHALATION ×3 (03:11→14:13)
[2020-11-09] MEDS: IPRATROPIUM BR 0.02% INH SOLN 0.5 MG/2.5 ML VIAL INHALATION ×3 (03:12→14:13)
[2020-11-09 06:11] LABS: Basophils Percent Auto 0.1 % (0.2-1.2); Hemoglobin 13.6 g/dL (14.0-18.0); Immature Granulocyte Absolute 0.12 K/mm3 (0.00-0.031); Immature Granulocyte Percent A 1.3 % (0-0.5); Immature Platelet Fraction Pct 3.4 % (0.9-11.2); Lymphocytes Absolute Auto 1.09 K/mm3 (0.9-3.2); Lymphocytes Percent Auto 12.2 % (18.3-44.2); Mean Corpuscular Hemoglobin 30.9 pg (26-34); Mean Corpuscular Volume 90.9 fl (80-100); Mean Platelet Volume 9.3 fl (7.4-10.4); Monocytes Absolute Auto 0.8 K/mm3 (0.1-0.6); Monocytes Percent Auto 8.4 % (2.6-8.5); Platelet Count Result 136 k/mm3 (150-375); Red Cell Distribution Width 12.9 % (11.5-14.5)
[2020-11-09 06:22] LABS: Alanine Aminotransferase 40 U/L (4-50); Estimated CRCL calculation 75 ml/min; Estimated Glomerular Filt Rate > 60
[2020-11-09 06:25] LABS: Prothrombin Time 13.1 Seconds (11.1-14.7)
[2020-11-09] MEDS: BUDESONIDE RESPULE NEB 0.5 MG/2 ML AMP INHALATION (07:57)
[2020-11-09 07:58] LABS: Legionella pneumophila Ag Ur Not Detected (Not Detected)
[2020-11-09 08:10] LABS: Glucose Point of Care 139 mg/dl (65-105)
[2020-11-09] MEDS: TAMSULOSIN HCL 0.4 MG CAPSULE PO (09:22)
[2020-11-09] MEDS: ATORVASTATIN 40 MG TABLET 80 MG PO (09:22)
[2020-11-09] MEDS: DEXAMETHASONE SOD PHOS INJ 4 MG/ML VIAL 6 MG IV PUSH (09:22)
[2020-11-09] MEDS: metFORMIN HCL 500 MG TABLET PO (09:22)
[2020-11-09] MEDS: carvediloL 12.5 MG TABLET PO (09:23)
[2020-11-09] MEDS: allopurinoL 300 MG TABLET PO (09:23)
[2020-11-09] MEDS: CLOPIDOGREL BISULFATE 75 MG TABLET PO (09:23)
[2020-11-09] MEDS: lisinopriL 20 MG TABLET PO (09:23)
[2020-11-09] MEDS: amLODIPine BESYLATE 2.5 MG TABLET PO (09:23)
[2020-11-09] MEDS: ENOXAPARIN 40 MG/0.4 ML SYRINGE SUB-Q (09:23)
--- NOTE | 2020-11-09 09:47 | PM.DS ---
DS: Admitting Diagnosis Admitting Diagnosis Admitting Diagnosis: Acute respiratory failure, PNA DS: Discharge Diagnosis Discharge Diagnosis (1) Pneumonia due to COVID-19 virus: Code(s): U07.1 - COVID-19; J12.82 - Pneumonia due to coronavirus disease 2019 Status: Acute Assessment and Plan: Date of Admission 11/05/20 Date of Discharge 11/09/20 Mr. Adrian is a pleasant 80yo gentleman with COPD who presented to the ED for evaluation of weakness and shortness of breath x 1 day, sx started 11/05. COVID positive by PCR 11/05. CTA chest shows scattered perihilar groundglass opacities without evidence of central PE, limited sensitivity in segmental arteries due to motion. COVID vaccinated with J&J few months back. Family member tested positive this week. He was initially treated with doses of IV azithromycin and rocephin which were discontinued once positive COVID PCR results returned. He was treated with 3 days of IV remdesivir and dexamethasone and made good improvement. Treated with supportive care with Tylenol for fevers, albuterol PRN. Home oxygen evaluation prior to discharge showed he did not require home O2 at rest or with activity. Overall he was feeling better and was eager for discharge home. He was hemodynamically stable for discharge home 11/09/20 with instructions to follow up with PCP. (2) Sepsis: Qualifiers: Sepsis type: sepsis due to unspecified organism Sepsis acute organ dysfunction status: with acute organ dysfunction Severe sepsis acute organ dysfunction type: acute respiratory failure Acute respiratory failure type: with hypoxia Severe sepsis shock status: without septic shock Qualified Code(s): A41.9 - Sepsis, unspecified organism; R65.20 - Severe sepsis without septic shock; J96.01 - Acute respiratory failure with hypoxia Code(s): A41.9 - Sepsis, unspecified organism Status: Acute Assessment and Plan: Evident on arrival with fever, tachycardia, leukocytosis. Suspected source is respiratory, see above. Blood cultures negative. Legionella and pneumococcal urine antigens negative. Leukocytosis resolved prior to discharge, less common with COVID but no other evidence of acute infection at this time, will monitor. (3) Acute respiratory failure with hypoxia: Code(s): J96.01 - Acute respiratory failure with hypoxia Status: Resolved Assessment and Plan: Suspect related to pneumonia with underlying history of COPD. Required up to 2L/min. Resolved - home oxygen evaluation shows he does not require supplemental O2 at rest or with activity on day of discharge. (4) BPH with obstruction/lower urinary tract symptoms: Code(s): N40.1 - Benign prostatic hyperplasia with lower urinary tract symptoms; N13.8 - Other obstructive and reflux uropathy Status: Acute Assessment and Plan: Patient reports incomplete bladder emptying, nocturia. He was started on Flomax here. Follow up with PCP. (5) Obstructive sleep apnea (adult) (pediatric): Code(s): G47.33 - Obstructive sleep apnea (adult) (pediatric) Status: Chronic Assessment and Plan: CPAP was used with filter device while in isolation. (6) Diabetes mellitus: Qualifiers: Diabetes mellitus type: type 2 Diabetes mellitus fpc insulin use: without long goods drier use Diabetes mellitus complication status: without complication Qualified Code(s): E11.9 - Type 2 diabetes mellitus without complications Code(s): E11.9 - Type 2 diabetes mellitus without complications Status: Chronic Assessment and Plan: A1c 6.3%. Continue home metformin. (7) Chronic obstructive pulmonary disease, unspecified: Justin
[2020-11-09 11:36] LABS: Glucose Point of Care 211 mg/dl (65-105)
[2020-11-09] MEDS: INSULIN ASPART (*BKC) 100 UNITS/ML SUB-Q (11:48)
--- NOTE | 2020-11-09 12:09 | PCRCNOTE ---
Home O2 Evaluation complete; Pt. does not require Home oxygen. Luis Daniel and MARGARETTE Gonzalez both notified.
[2020-11-09] MEDS: REMDESIVIR 100 MG/NS 250 ML 100 MG/250 ML BAG 250 MG IVPB (15:47)
--- NOTE | 2020-11-17 08:31 | PC.NURSE ---
Blood cx are negative
== END 2020-11-09 17:50 | disposition home or self-care (01) | DRG 871 ==
LOC: ANHED 20:04 → ANH3MEDSUR 11-06 11:18
PROVIDERS: Emergency Medicine; Physician Assistant; Admitting Provider Internal Medicine; Emergency Provider General Practice; Visit Provider Internal Medicine
DX: A41.89 Other specified sepsis (principal); J96.01 Acute respiratory failure with hypoxia; U07.1 COVID-19; J12.82 Pneumonia due to coronavirus disease 2019; J44.0 Chronic obstructive pulmonary disease with (acute) lower respiratory infection; N13.8 Other obstructive and reflux uropathy; R65.20 Severe sepsis without septic shock; N40.1 Benign prostatic hyperplasia with lower urinary tract symptoms; G47.33 Obstructive sleep apnea (adult) (pediatric); I10 Essential (primary) hypertension; E03.9 Hypothyroidism, unspecified; E11.51 Type 2 diabetes mellitus with diabetic peripheral angiopathy without gangrene; E78.5 Hyperlipidemia, unspecified; Z87.891 Personal history of nicotine dependence; Z79.899 Other long term (current) drug therapy
CPT/HCPCS: 36415; 36600; 71046; 71275; 80048; 80053; 80076; 81001; 82375; 82565; 82728; 82805; 82948; 83036; 83050; 83605; 83735; 84145; 84460; 84484; 85025; 85055; 85380; 85610; 85730; 86140; 87040; 87449; 87804; 87899; 93005; 94618; 94640; 96365; 96367; 96368; 96372; 96375; 97110; 97161; 97165; 99285; A9270; C9803; G0378; J0131; J0456; J0696; J1100; J1650; J1815; J2930; J7512; Q9967; U0003; U0005

== ENCOUNTER 2020-11-19 11:05 | Outpatient (CLI) | payer MEDICARE, SELFPAY ==
[2020-11-19 12:00] LABS: Hemoglobin A1C 7.2 % (<5.7)
[2020-11-19 12:01] LABS: Alanine Aminotransferase 64 U/L (4-50); Albumin Level 3.8 g/dL (3.5-5.1); Alkaline Phosphatase 85 U/L (38-126); Anion Gap 7 mmol/L (8-16); Aspartate Amino Transferase 31 U/L (17-59); Bilirubin,Total 1.3 mg/dL (0.2-1.3); Blood Urea Nitrogen 21 mg/dL (9-20); Carbon Dioxide 31 mmol/L (22-30); Chloride 96 mmol/L (98-107); Cholesterol 125 mg/dL (0-200); Estimated Glomerular Filt Rate > 60; Glucose 121 mg/dL (75-110); HDL Direct 40 mg/dL; Potassium 4.3 mmol/L (3.4-5.0); Sodium 134 mmol/L (137-145); Triglycerides 150 mg/dL (<150); Uric Acid 3.1 mg/dL (3.5-8.5)
[2020-11-19 12:11] LABS: LDL Cholesterol Direct 54 mg/dL
[2020-11-19 12:37] LABS: Creatinine Urine 107.7 mg/dL
[2020-11-19 12:41] LABS: MALB Creatinine Ratio 8.5 mg/g (0-30); Microalbumin Urine Random 9.2 mg/L (0-16.7)
== END 2020-11-19 11:06 | disposition home or self-care (01) ==
LOC: ANHLAB 11:10
PROVIDERS: PCP Internal Medicine; Visit Provider Internal Medicine
DX: E11.51 Type 2 diabetes mellitus with diabetic peripheral angiopathy without gangrene (principal); Z79.899 Other long term (current) drug therapy; E78.5 Hyperlipidemia, unspecified; E03.9 Hypothyroidism, unspecified; M10.9 Gout, unspecified
CPT/HCPCS: 36415; 80053; 80061; 82043; 83036; 84443; 84550

== ENCOUNTER 2021-05-05 10:22 | Outpatient (CLI) | payer MEDICARE, SELFPAY ==
[2021-05-05 11:06] LABS: Alanine Aminotransferase 49 U/L (4-50); Albumin Level 4.2 g/dL (3.5-5.1); Alkaline Phosphatase 105 U/L (38-126); Anion Gap 8 mmol/L (8-16); Aspartate Amino Transferase 34 U/L (17-59); Bilirubin,Total 0.8 mg/dL (0.2-1.3); Blood Urea Nitrogen 16 mg/dL (9-20); Calcium 9.4 mg/dL (8.4-10.2); Carbon Dioxide 31 mmol/L (22-30); Chloride 99 mmol/L (98-107); Cholesterol 135 mg/dL (0-200); Estimated Glomerular Filt Rate > 60; Glucose 126 mg/dL (65-110); HDL Direct 42 mg/dL; Potassium 4.2 mmol/L (3.4-5.0); Sodium 138 mmol/L (137-145); Triglycerides 145 mg/dL (<150); Uric Acid 4.5 mg/dL (3.5-8.5)
[2021-05-05 11:17] LABS: Hemoglobin A1C 6.5 % (<5.7); LDL Cholesterol Direct 68 mg/dL
== END 2021-05-05 10:23 | disposition home or self-care (01) ==
LOC: ANHLAB 10:24
PROVIDERS: PCP Internal Medicine; Visit Provider Internal Medicine
DX: E11.51 Type 2 diabetes mellitus with diabetic peripheral angiopathy without gangrene (principal); Z79.899 Other long term (current) drug therapy; E03.9 Hypothyroidism, unspecified; E78.5 Hyperlipidemia, unspecified; M10.9 Gout, unspecified
CPT/HCPCS: 36415; 80053; 80061; 83036; 84443; 84550